=== PATIENT | female | born 1985 | race Caucasian/White ===

== ENCOUNTER 2022-09-06 08:31 | Day surgery (SDC) | payer BC ==
[2022-09-02 13:16] VITALS: BMI 35.5
[2022-09-06] MEDS ORDERED: Vancomycin 1 GM VIAL ONE (08:46)
[2022-09-06 10:17] LABS: #Basophils 0.1 thou/uL (0.0-0.2); #Eosinphils 0.1 thou/uL (0.0-0.7); #Lymphocytes 3.7 thou/uL (1.20-3.40); #Monocytes 0.7 thou/uL (0.11-0.59); #Neutrophils 7.3 thou/uL (1.40-6.50); %Basophils 0.7 % (0.0-1.0); %Eosinophils 0.6 % (0.0-10.0); %Lymphocytes 31.6 % (21.0-51.0); %Monocytes 5.5 % (0.0-10.0); %Neutrophils 61.6 % (42.0-75.0); Hemoglobin 14.7 g/dL (12.0-16.0); Mean Corpuscular HGB CONC 33.5 g/dL (32.0-36.0); Mean Corpuscular Hemoglobin 32.2 pg (27.0-31.0); Mean Platelet Volume 7.3 fL (7.4-10.4); Platelet Count 259 10x3/uL (130-400); RBC Distribution Width 11.6 % (11.5-14.5); Red Blood Cell (RBC) Count 4.57 mill/uL (4.20-5.40); White Blood Cell (WBC) Count 11.8 10x3/uL (4.8-10.8)
[2022-09-06 10:50] LABS: Anion Gap 13 mmol/L (10-20); BUN (Urea Nitrogen) 14 mg/dL (7.0-18.7); Calc. Creatinine Clearance 164 mL/min (70-130); Calcium 9.4 mg/dL (7.8-10.44); Carbon Dioxide 21 mmol/L (22-29); Chloride 109 mmol/L (98-107); Estimated GFR 114; Glucose 101 mg/dL (70-105); Sodium 139 mmol/L (136-145)
[2022-09-06] MEDS ORDERED: CEFAZOLIN 2 GM VIAL ONE (10:54)
[2022-09-06] MEDS ORDERED: Sodium Chloride 0.9% 100 ML ONE (10:55)
[2022-09-06] MEDS ORDERED: Rocuronium Bromide 10 MG/ML (10ML VIAL) ONE (11:06)
[2022-09-06] MEDS ORDERED: Lidocaine 1% PF 5 ML VIAL ONE (11:06)
[2022-09-06] MEDS ORDERED: Ondansetron PF 4 MG/2 ML Vial ONE (11:06)
[2022-09-06] MEDS ORDERED: Dexamethasone 20 MG/5 ML VIAL ONE (11:06)
[2022-09-06] MEDS ORDERED: Midazolam HCl 2 mg/2 ml Vial ONE (11:06)
[2022-09-06] MEDS ORDERED: Ketorolac Tromethamine 30 MG/ML VIAL ONE (11:06)
[2022-09-06] MEDS ORDERED: fentaNYL PF 100 MCG/2 ML SYRINGE ONE ×2 (11:06→11:30)
[2022-09-06] MEDS ORDERED: PROPOFOL 200 MG/20 ML VIAL ONE (11:06)
[2022-09-06] MEDS ORDERED: MINERAL OIL/WHITE PETROLATUM 3.5 GM TUBE ONE (11:08)
[2022-09-06] MEDS ORDERED: SUGAMMADEX SODIUM 200 MG/2 ML VIAL ONE (11:48)
[2022-09-06] MEDS ORDERED: HYDROmorphone 0.5 MG/0.5 ML SYRINGE ONE ×2 (12:11→12:38)
[2022-09-06] MEDS ORDERED: FENTANYL 50 MCG/ML 1 ML VIAL ONE (12:18)
[2022-09-06] MEDS ORDERED: Cyclobenzaprine 10 MG TAB ONE (12:49)
[2022-09-06] MEDS ORDERED: HYDROcodone/Acetaminophen 5/325 mg Tablet ONE (14:14)
== END 2022-09-06 14:55 | disposition home or self-care (01) ==
LOC: SDC 08:31
PROVIDERS: ATTEND Neurological Surgery
PROC: 0SB20ZZ Excision of Lumbar Vertebral Disc, Open Approach (ICD-10-PCS; principal; 2022-09-06)
DX: M51.16 Intervertebral disc disorders with radiculopathy, lumbar region (principal); F17.200 Nicotine dependence, unspecified, uncomplicated; Z79.899 Other long term (current) drug therapy
CPT/HCPCS: 36415; 80048; 85025; 93005; 93010; C1713; J1100; J1170; J1885; J2250; J2405; J2704; J3010; J3370; J3490